=== PATIENT | female | born 1970 | race African-American/Black ===

== ENCOUNTER 2021-12-17 12:42 | Outpatient (CLI) | payer OTHER, SELFPAY | END 2021-12-17 12:43 | disposition home or self-care (01) | LOC: ANHAUDIO 12:47 | PROVIDERS: Visit Provider Otolaryngology | DX: H65.23 Chronic serous otitis media, bilateral (principal); H90.3 Sensorineural hearing loss, bilateral | CPT/HCPCS: 92557; 92567 ==